=== PATIENT | female | born 1990 | race Two or more races ===

== ENCOUNTER 2019-06-13 23:01 | Emergency (ER) | payer MEDICAID ==
[~2019-06-13] VITALS: Ht 160 cm; Wt 77.1 kg
[2019-06-13 23:05] VITALS: BP 115/74
[2019-06-13 23:54] LABS: APPEARANCE,URINE CLEAR (CLEAR); BILIRUBIN,URINE NEGATIVE (NEGATIVE); BLOOD, URINE NEGATIVE Ery/uL (NEGATIVE); COLOR,URINE YELLOW (YELLOW); KETONES,URINE NEGATIVE (NEGATIVE); LEUKOCYTE ESTERASE ,URINE NEGATIVE (NEGATIVE); NITRITE, URINE NEGATIVE (NEGATIVE); PROTEIN,URINE NEGATIVE (NEGATIVE); UGLUCOSE NEGATIVE (NEGATIVE); UROBILINOGEN,URINE 0.2 EU/dL (0.2)
== END 2019-06-14 00:23 | disposition home or self-care (01) ==
LOC: ER 23:07
DX: O99.511 Diseases of the respiratory system complicating pregnancy, first trimester (principal); J06.9 Acute upper respiratory infection, unspecified; Z3A.10 10 weeks gestation of pregnancy
CPT/HCPCS: 81000-TC